=== PATIENT | female | born 1955 | race Native Hawaiian/Other Pacific Islander ===

== ENCOUNTER 2018-10-24 10:09 | Outpatient (CLI) | payer OTHER | END 2018-10-24 20:34 | disposition home or self-care (01) | LOC: CT 10:09 | DX: R22.1 Localized swelling, mass and lump, neck (principal) | CPT/HCPCS: 36415; 82565; 84520; Q9963 ==

== ENCOUNTER 2020-10-08 17:17 | Outpatient (CLI) | payer OTHER | END 2020-10-08 20:11 | disposition home or self-care (01) | LOC: RAD 17:17 | DX: M25.552 Pain in left hip (principal); W19.XXXA Unspecified fall, initial encounter ==

== ENCOUNTER 2021-06-10 14:25 | Outpatient (CLI) | payer OTHER | END 2021-06-10 23:14 | disposition home or self-care (01) | LOC: MAMMO 14:25 | PROVIDERS: ATTEND Physician Assistant | DX: Z12.31 Encounter for screening mammogram for malignant neoplasm of breast (principal); Z12.2 Encounter for screening for malignant neoplasm of respiratory organs; F17.210 Nicotine dependence, cigarettes, uncomplicated ==

== ENCOUNTER 2021-08-03 10:59 | Outpatient (CLI) | payer OTHER | END 2021-08-03 19:30 | disposition home or self-care (01) | LOC: RAD 10:59 | PROVIDERS: ATTEND Internal Medicine | DX: M79.604 Pain in right leg (principal) ==

== ENCOUNTER 2021-11-01 10:41 | Outpatient (CLI) | payer OTHER | END 2021-11-01 19:12 | disposition home or self-care (01) | LOC: LAB 10:41 | PROVIDERS: ATTEND Internal Medicine | DX: U07.1 COVID-19 (principal); Z20.822 Contact with and (suspected) exposure to COVID-19; R19.7 Diarrhea, unspecified; J34.89 Other specified disorders of nose and nasal sinuses | CPT/HCPCS: 87635; G2023; U0003 ==

== ENCOUNTER 2022-05-25 13:11 | Outpatient (CLI) | payer OTHER | END 2022-05-25 22:27 | disposition home or self-care (01) | LOC: CT 13:11 | PROVIDERS: ATTEND Internal Medicine Sleep Medicine | DX: R91.8 Other nonspecific abnormal finding of lung field (principal) ==

== ENCOUNTER 2022-11-10 11:31 | Emergency (ER) | payer OTHER ==
[~2022-11-10] VITALS: Ht 160 cm; Wt 70.3 kg
[2022-11-10 11:40] VITALS: TEMP 98.2
[2022-11-10 13:33] LABS: PLATELET COUNT 309 K/uL (152-353)
[2022-11-10 13:41] LABS: POTASSIUM 4.1 mmol/L (3.6-5.2)
[2022-11-10 15:10] VITALS: BP 134/74
== END 2022-11-10 15:10 | disposition home or self-care (01) ==
LOC: ED 11:31
PROVIDERS: Family Medicine
DX: N39.0 Urinary tract infection, site not specified (principal)
CPT/HCPCS: 80053; 81000; 85027; 87077; 87086; 87088; 87186; 99283

== ENCOUNTER 2022-11-14 12:56 | Outpatient (CLI) | payer OTHER ==
[~2022-11-14] VITALS: Ht 160 cm; Wt 70.3 kg
[2022-11-14 13:12] VITALS: BP 143/76; TEMP 99.4
[2022-11-14 14:19] VITALS: BP 138/66; TEMP 99
== END 2022-11-14 19:19 | disposition home or self-care (01) ==
LOC: INF 12:56
PROVIDERS: ATTEND Internal Medicine
DX: N39.0 Urinary tract infection, site not specified (principal)
CPT/HCPCS: 96365; J1335

== ENCOUNTER 2022-11-16 12:59 | Outpatient (CLI) | payer OTHER ==
[~2022-11-16] VITALS: Ht 160 cm; Wt 68.0 kg
[2022-11-16 13:03] VITALS: BP 108/68; TEMP 98.8
[2022-11-16 14:08] VITALS: BP 112/60; TEMP 98.1
== END 2022-11-16 19:00 | disposition home or self-care (01) ==
LOC: INF 12:59
PROVIDERS: ATTEND Internal Medicine
DX: N39.0 Urinary tract infection, site not specified (principal)
CPT/HCPCS: 96365; J1335

== ENCOUNTER 2022-11-17 11:19 | Outpatient (CLI) | payer OTHER ==
[~2022-11-17] VITALS: Ht 160 cm; Wt 68.0 kg
[2022-11-17 13:07] VITALS: BP 140/74; TEMP 97.5
[2022-11-17 14:10] VITALS: BP 119/72; TEMP 98.2
== END 2022-11-17 19:16 | disposition home or self-care (01) ==
LOC: INF 11:19
PROVIDERS: ATTEND Internal Medicine
DX: N39.0 Urinary tract infection, site not specified (principal)
CPT/HCPCS: 96365; J1335

== ENCOUNTER 2022-11-18 13:18 | Outpatient (CLI) | payer OTHER ==
[~2022-11-18] VITALS: Ht 30.5 cm; Wt 0.5 kg
[2022-11-18 13:40] VITALS: BP 130/66; TEMP 97.6
[2022-11-18 14:45] VITALS: BP 134/77; TEMP 98.3
== END 2022-11-18 21:43 | disposition home or self-care (01) ==
LOC: INF 13:18
PROVIDERS: ATTEND Internal Medicine
DX: N39.0 Urinary tract infection, site not specified (principal)
CPT/HCPCS: 96365; J1335

== ENCOUNTER 2022-11-19 12:54 | Outpatient (CLI) | payer OTHER ==
[~2022-11-19] VITALS: Ht 30.5 cm; Wt 0.5 kg
[2022-11-19 13:09] VITALS: BP 122/69; TEMP 98.8
[2022-11-19 14:17] VITALS: BP 132/70; TEMP 98.4
== END 2022-11-19 19:09 | disposition home or self-care (01) ==
LOC: INF 12:54
PROVIDERS: ATTEND Internal Medicine
DX: N39.0 Urinary tract infection, site not specified (principal)
CPT/HCPCS: 96365; J1335

== ENCOUNTER 2023-04-25 13:31 | Outpatient (CLI) | payer OTHER | END 2023-04-25 20:10 | disposition home or self-care (01) | LOC: CT 13:31 | PROVIDERS: ATTEND Internal Medicine Sleep Medicine | DX: R91.8 Other nonspecific abnormal finding of lung field (principal) ==

== ENCOUNTER 2023-06-12 13:18 | Outpatient (CLI) | payer OTHER | END 2023-06-12 18:57 | disposition home or self-care (01) | LOC: MAMMO 13:18 | PROVIDERS: ATTEND Internal Medicine | DX: Z12.31 Encounter for screening mammogram for malignant neoplasm of breast (principal) ==

== ENCOUNTER 2023-07-11 16:26 | Outpatient (CLI) | payer OTHER | END 2023-07-11 18:53 | disposition home or self-care (01) | LOC: RAD 16:26 | PROVIDERS: ATTEND Nurse Practitioner Family | DX: M25.572 Pain in left ankle and joints of left foot (principal) ==